=== PATIENT | female | born 1985 | race Caucasian/White ===

== ENCOUNTER 2022-06-21 15:12 | Emergency (ER) | payer SELFPAY ==
[2022-06-21] MEDS ORDERED: predniSONE 20 MG TAB ONE (15:40)
[2022-06-21] MEDS ORDERED: Ipratropium/Albuterol 3 ML NEB ONE (15:40)
[2022-06-21] MEDS ORDERED: Albuterol 2.5 MG/0.5 ML NEB ONE (15:41)
== END 2022-06-21 17:43 | disposition home or self-care (01) ==
LOC: MADERS 15:12
DX: J45.901 Unspecified asthma with (acute) exacerbation (principal); G40.909 Epilepsy, unspecified, not intractable, without status epilepticus; Z87.891 Personal history of nicotine dependence; Z79.899 Other long term (current) drug therapy
CPT/HCPCS: 71046; J7512; J7611; J7620

== ENCOUNTER 2022-11-15 20:38 | Emergency (ER) | payer OTHER, SELFPAY ==
[2022-11-15] MEDS ORDERED: Ondansetron ODT 4 MG TAB ONE (21:27)
[2022-11-15] MEDS ORDERED: cefTRIAXone (ROCEPHIN) 500 MG VIAL ONE (21:27)
[2022-11-15] MEDS ORDERED: Azithromycin 250 MG TAB ONE (21:27)
[2022-11-15 21:35] LABS: Bilirubin Negative (Negative); Blood, Urine Negative (Negative); Clarity Clear (Clear); Glucose, Urine (Dipstick) Negative (Negative); Ketone, Urine Negative (Negative); Leukocyte Trace (Negative); Nitrite Negative (Negative); Protein, Urine (Dipstick) Negative (Neg-Trace); Specific Gravity, Urine 1.015 (1.005-1.030); Urobilinogen 0.2 mg/dL (Less than 2); pH, Urine 6.5 (5.0-9.0)
[2022-11-15 21:41] LABS: Bacteria/HPF Rare-Few HPF (None Seen); CAUTI Indications for Culture Dysuria,urgency,freq; RBC/HPF None Seen HPF (0-3); Urine Culture Reflex No No
[2022-11-16 20:55] LABS: Chlam.trachomatis by PCR,Urine Not Detected (NotDetected); GC N.gonorrhoeae PCR,UrineVOID Not Detected (NotDetected)
== END 2022-11-15 22:02 | disposition home or self-care (01) ==
LOC: MADERS 20:38
DX: H66.92 Otitis media, unspecified, left ear (principal); J45.909 Unspecified asthma, uncomplicated; Z87.891 Personal history of nicotine dependence; Z79.899 Other long term (current) drug therapy
CPT/HCPCS: 81001; 87480; 87491; 87510; 87591; 87660; 96372; 99283; J0696; Q0162

== ENCOUNTER 2023-03-28 15:18 | Emergency (ER) | payer SELFPAY ==
[2023-03-28] MEDS ORDERED: Sodium Chloride 0.9% 1,000 ML ONE (15:41)
[2023-03-28] MEDS ORDERED: Dexamethasone 10 MG/ML VIAL ONE (15:41)
[2023-03-28] MEDS ORDERED: Magnesium 2 GM/50 ML BAG (IN WATER) ONE (15:41)
[2023-03-28] MEDS ORDERED: Albuterol 2.5 MG (0.5 mL) NEB ONE ×2 (15:41→17:03)
[2023-03-28] MEDS ORDERED: Ipratropium/Albuterol 3 ML NEB ONE ×2 (15:41→17:03)
[2023-03-28 16:18] LABS: BHCG - Serum Negative (NEGATIVE); Pregs Control Background? CLEAR/WHITE (CLR/WHITE); Pregs Control Bar Appear? YES (CONTROL BAR)
[2023-03-28 16:21] LABS: ALT (SGPT) 22 U/L (8-55); AST (SGOT) 29 U/L (5-34); Albumin 4.2 g/dL (3.5-5.0); Alkaline Phosphatase 65 U/L (40-110); Anion Gap 16 mmol/L (10-20); BUN (Urea Nitrogen) 9 mg/dL (7.0-18.7); Bilirubin, Total 0.4 mg/dL (0.2-1.2); Calc. Creatinine Clearance 0 mL/min (70-130); Calcium 8.9 mg/dL (7.8-10.44); Carbon Dioxide 18 mmol/L (22-29); Chloride 105 mmol/L (98-107); Estimated GFR 113; Globulin 3.4 g/dL (2.4-3.5); Glucose 97 mg/dL (70-105); Potassium 3.4 mmol/L (3.5-5.1); Protein, Total 7.6 g/dL (6.0-8.3); Sodium 136 mmol/L (136-145)
[2023-03-28 16:22] LABS: Band 6 % (5-11); Eosinophils 1 % (0-10); Hematocrit 41.6 % (36.0-47.0); Hemoglobin 13.4 g/dL (12.0-16.0); Lymphocytes 12 % (21-51); MDiff Complete? YES; Manual Diff?? YES; Mean Corpuscular HGB CONC 32.2 g/dL (32.0-36.0); Mean Corpuscular Hemoglobin 28.7 pg (27.0-31.0); Mean Corpuscular Volume 89.2 fl (78.0-98.0); Mean Platelet Volume 9.1 fL (7.4-10.4); Monocytes 8 % (0-10); Neutrophil 60 % (42-75); Platelet Count 230 10x3/uL (130-400); RBC Distribution Width 12.1 % (11.5-14.5); Red Blood Cell (RBC) Count 4.66 mill/uL (4.20-5.40); White Blood Cell (WBC) Count 3.6 10x3/uL (4.8-10.8)
[2023-03-28 16:23] LABS: Platelet Adequacy Comment Appears Adequate; RBC Morph Comment Within Normal Limits; Reactive Lymphocytes 13 % (0-10)
[2023-03-28 17:04] LABS: SARS-CoV-2 NAA Rapid Test Not Detected (NotDetected)
[2023-03-28] MEDS ORDERED: Ketorolac Tromethamine 30 MG (1 mL) VIAL ONE (17:21)
[2023-03-28] MEDS ORDERED: diphenhydrAMINE 50 MG/ML VIAL ONE (19:50)
[2023-03-28] MEDS ORDERED: Sodium Chloride 0.9% 100 ML ONE (19:51)
== END 2023-03-28 20:38 | disposition short-term general hospital (02) ==
LOC: MADERS 15:18
DX: J45.902 Unspecified asthma with status asthmaticus (principal); J10.1 Influenza due to other identified influenza virus with other respiratory manifestations; Z87.891 Personal history of nicotine dependence; Z79.899 Other long term (current) drug therapy
CPT/HCPCS: 71046; 80053; 84703; 85025; 93005; 96374; 96375; J1100; J1200; J1885; J3475; J3490; J7050; J7611; J7620

== ENCOUNTER 2024-12-28 08:40 | Emergency (ER) | payer OTHER, SELFPAY ==
[2024-12-28] MEDS ORDERED: Ondansetron PF 4 MG/2 ML Vial ONE (09:10)
[2024-12-28 09:53] LABS: Hematocrit 39.5 % (36.0-47.0); Hemoglobin 13.2 g/dL (12.0-16.0); Mean Corpuscular Hemoglobin 28.5 pg (27.0-31.0); Mean Corpuscular Volume 85.6 fl (78.0-98.0); Platelet Count 342 10x3/uL (130-400); Red Blood Cell (RBC) Count 4.61 mill/uL (4.20-5.40); White Blood Cell (WBC) Count 12.1 10x3/uL (4.8-10.8)
[2024-12-28 10:12] LABS: MDiff Complete? YES; Manual Diff?? YES
[2024-12-28 10:14] LABS: Platelet Adequacy Comment Appears Adequate
[2024-12-28 10:47] LABS: ALT (SGPT) 16 U/L (Less than 34); AST (SGOT) 26 U/L (11-34); Albumin 4.0 g/dL (3.1-4.5); Alkaline Phosphatase 70 U/L (40-110); Anion Gap 17 mmol/L (10-20); BUN (Urea Nitrogen) 11 mg/dL (7.0-18.7); Bilirubin, Total 0.7 mg/dL (0.3-1.2); Calc. Creatinine Clearance 0 mL/min (70-130); Calcium 9.6 mg/dL (7.8-10.44); Carbon Dioxide 18 mmol/L (22-29); Chloride 105 mmol/L (98-107); Globulin 3.4 g/dL (2.4-3.5); Glucose 86 mg/dL (70-105); Lipase 17 U/L (8-78); Magnesium 1.7 mg/dL (1.6-2.6); Potassium 3.9 mmol/L (3.5-5.1); Sodium 136 mmol/L (136-145)
== END 2024-12-28 11:47 | disposition home or self-care (01) ==
LOC: MADERS 08:40
DX: R11.2 Nausea with vomiting, unspecified (principal); R10.9 Unspecified abdominal pain; T38.3X5A Adverse effect of insulin and oral hypoglycemic [antidiabetic] drugs, initial encounter; J45.909 Unspecified asthma, uncomplicated; Z87.891 Personal history of nicotine dependence; Z79.51 Long term (current) use of inhaled steroids
CPT/HCPCS: 80053; 83690; 83735; 85025; 96361; 96365; 96372; J2550; J7030

== ENCOUNTER 2024-12-29 19:05 | Emergency (ER) | payer SELFPAY ==
[2024-12-29] MEDS ORDERED: Simethicone Chewable 80 MG TAB ONE (20:16)
[2024-12-29] MEDS ORDERED: Pantoprazole 40 MG VIAL ONE (20:17)
[2024-12-29 20:21] LABS: Hematocrit 39.7 % (36.0-47.0); Hemoglobin 13.2 g/dL (12.0-16.0); Mean Corpuscular Hemoglobin 28.6 pg (27.0-31.0); Mean Corpuscular Volume 86.5 fl (78.0-98.0); Platelet Count 358 10x3/uL (130-400); Red Blood Cell (RBC) Count 4.60 mill/uL (4.20-5.40); White Blood Cell (WBC) Count 8.2 10x3/uL (4.8-10.8)
[2024-12-29 20:26] LABS: MDiff Complete? YES
[2024-12-29 20:51] LABS: ALT (SGPT) 20 U/L (Less than 34); AST (SGOT) 22 U/L (11-34); Albumin 4.2 g/dL (3.1-4.5); Alkaline Phosphatase 74 U/L (40-110); Anion Gap 15 mmol/L (10-20); BUN (Urea Nitrogen) 12 mg/dL (7.0-18.7); Bilirubin, Total 0.7 mg/dL (0.3-1.2); Calc. Creatinine Clearance 0 mL/min (70-130); Calcium 9.5 mg/dL (7.8-10.44); Carbon Dioxide 21 mmol/L (22-29); Chloride 105 mmol/L (98-107); Globulin 3.3 g/dL (2.4-3.5); Glucose 89 mg/dL (70-105); Lipase 16 U/L (8-78); Potassium 3.4 mmol/L (3.5-5.1); Sodium 138 mmol/L (136-145)
[2024-12-29] MEDS ORDERED: Ketorolac Tromethamine 30 MG (1 mL) VIAL ONE (22:38)
[2024-12-29 22:59] LABS: Glucose, Urine (Dipstick) Negative (Negative); Leukocyte Moderate (Negative); Protein, Urine (Dipstick) Negative (Neg-Trace); Specific Gravity, Urine 1.015 (1.005-1.030)
[2024-12-29 23:03] LABS: Bacteria/HPF 1+ HPF (None Seen); CAUTI Indications for Culture Dysuria,urgency,freq; RBC/HPF 0-3 HPF (0-3); WBC/HPF 21-50 HPF (0-3)
[2024-12-29 23:05] LABS: Urine Culture Reflex Yes Yes
[2024-12-30] MEDS ORDERED: cefTRIAXone (ROCEPHIN) 2 GM VIAL ONE (00:37)
== END 2024-12-30 01:42 | disposition home or self-care (01) ==
LOC: MADERS 19:05
DX: E86.0 Dehydration (principal); N39.0 Urinary tract infection, site not specified; R11.2 Nausea with vomiting, unspecified; R10.9 Unspecified abdominal pain; T50.905A Adverse effect of unspecified drugs, medicaments and biological substances, initial encounter
CPT/HCPCS: 80053; 81001; 83690; 85025; 87086; 96361; 96365; 96375; J0696; J1885; J2470; J2550; J7042

== ENCOUNTER 2025-02-10 08:57 | Emergency (ER) | payer SELFPAY ==
[2025-02-10] MEDS ORDERED: Lidocaine 1% PF 5 ML VIAL ONE (09:26)
== END 2025-02-10 09:43 | disposition home or self-care (01) ==
LOC: MADERS 08:57
DX: S61.303A Unspecified open wound of left middle finger with damage to nail, initial encounter (principal); J45.909 Unspecified asthma, uncomplicated; R56.9 Unspecified convulsions; Z87.891 Personal history of nicotine dependence; W23.0XXA Caught, crushed, jammed, or pinched between moving objects, initial encounter
CPT/HCPCS: 64450; J0665